=== PATIENT | male | born 1975 | race Caucasian/White ===

== ENCOUNTER 2017-08-25 11:23 | Emergency (ER) | payer OTHER ==
[~2017-08-25] VITALS: Ht 190.5 cm; Wt 141.2 kg
[~2017-08-25 11:23] MED LIST: ACET-1256 PO; IBUP1CAP9 PO; ONDA4TAB10 SL
[2017-08-25 11:26] VITALS: TEMP 36.5; Ht 190.5 cm; Wt 141.2 kg
[2017-08-25 11:36] VITALS: O2SAT 96
[2017-08-25] MEDS ORDERED: KETOROLAC TROMETHAMINE 30 MG/ML VIAL IV STA (12:19)
--- NOTE | 2017-08-25 12:37 | EMERGENCY ROOM VISIT NOTE ---
History First contact with patient: 11:53 Chief Complaint: FLU LIKE SX Stated Complaint: BLURRED VISION,SEVERE MUSCLE ACHES,DIZZINESS,NUMB History of Present Illness The patient is a 42 year old male who presents to the Emergency Room with complaints of overall not feeling well, and pain radiating from his shoulders into the back of his head and through his neck. The patient states the pain has been ongoing for 2 days. He states it is also been associated with headache , blurry vision, sore throat, cough, and lightheadedness. The patient has not had much of an appetite and has been nauseated when he eats, however he has been able to tolerate fluids. The patient states he feels like there is a hair in his throat, and he has been experiencing fevers of 103. The patient denies any nausea or vomiting, dyspnea, chest pain, wheezing, abdominal pain, urinary symptoms, diarrhea, constipation, sinus pain or pressure, rhinorrhea, congestion. The patient states 2 days ago, he woke up "feeling like trash." He states the last time he felt like this, he was admitted to the hospital and had to have an LP performed due to his neck stiffness and symptoms. He states that is something showed up on the spinal tap and I needed to be treated in the hospital". The patient has taken no medications for his symptoms. He states he did have a fever of 103 last night, did not take any medication. He states this does not feel like his musculoskeletal pain that he has experienced in the past with back injuries. The patient does have a history of diabetes, but does not have a PCP. He states that he has been managing his diabetes with diet over the past year. He states he has lost approximately 100 pounds over the past year. Review of Systems A complete 10 point review of systems was reviewed with the patient with pertinent positives and negatives as per history of present illness. All else were negative. Past Medical/Surgical History Medical Problems: (1) Asthma (2) Bronchitis (3) Fever (4) Hypertension (5) Intractable headache (6) Pneumonia (7) Stomach problems Surgical Problems: (1) History of laminectomy (2) History of tonsillectomy Family History Cancer Diabetes mellitus Heart disease Hypertension Lung disease Social History Smoking Status: Never Smoker Alcohol Use: none Drug Use: none Marital Status: single Housing Status: lives alone Occupation Status: employed Current/Historical Medications No Active Prescriptions or Reported Meds Physical Exam Vital Signs Date Time Temp Pulse Resp B/P (MAP) Pulse Ox O2 Delivery O2 Flow Rate FiO2 08/25/17 13:48 82 16 139/90 97 Room Air 08/25/17 12:30 83 16 134/83 96 Room Air 08/25/17 12:07 85 08/25/17 11:37 88 16 136/93 96 Room Air 08/25/17 11:36 96 Room Air 08/25/17 11:26 36.5 92 18 126/76 97 Room Air Physical Exam VITALS: Vitals are noted on the nurse's note and reviewed by myself. Vital signs stable. GENERAL: This is a 42-year-old obese white male, in no acute distress, nondiaphoretic, well-developed well-nourished. SKIN: The skin was without rashes, erythema, edema, or bruising. There is no tenting of the skin. Capillary reflex less than 2 seconds. HEAD: Normocephalic atraumatic. EARS: External auditory canals clear, tympanic membranes pearly varghese without erythema or effusion bilaterally. EYES: Pupils equal round and reactive to light and accommodation. Conjunctivae without injection, sclerae without icterus. Extraocular movements intact. NOSE: Patent, turbinates without inflammation or discharge. No sinus tenderness. MOUTH: Mucous membranes moist. Tonsils are not enlarged. Pharynx without erythema or exudate. Uvula midline. Airway patent. Tongue does not deviate. NECK: Supple without nuchal rigidity. Diffuse, tender lymphadenopathy. No thyromegaly. Cervical spine is nontender, but the patient does have tenderness on the lateral aspects of the neck. No JVD. HEART: Regular rate and rhythm without murmurs gallops or rubs. LUNGS: Clear to auscultation bilaterally without wheezes, rales or rhonchi. No dullness to percussion. No retractions or accessory muscle use. ABDOMEN: Positive bowel sounds x 4. Normal tympanic percussion. Mild tenderness in the lower abdomen on both sides. Otherwise, the abdomen was soft , nontender, without masses or organomegaly. Mcgee sign negative. No guarding or rebound tenderness. MUSCULOSKELETAL: No muscle atrophy, erythema, or edema noted. Full range of motion without joint tenderness in all extremities. No tenderness to palpation. Normal gait. Strength 5/5 throughout. NEURO: Patient was alert and oriented to person place and time. Normal sensation to light and sharp touch. Deep tendon reflexes 2+ throughout. No focal neurological deficits. Medical Decision & Procedures ER Provider Diagnostic Interpretation: CBC was without leukocytosis, anemia, thrombocytopenia. ESR elevated at 19. CMP significant only for elevated blood glucose of 136. Lactic acid normal at 1.2. C-reactive protein elevated at 2.3. Lyme disease testing negative. Rapid strep test was negative. Influenza testing negative. CHEST 2 VIEWS ROUTINE HISTORY: cough COMPARISON: Chest 06/19/2016. FINDINGS: The lungs are clear. Cardiac silhouette is normal in size. No pleural effusions. No pneumothorax. IMPRESSION: No acute process. Electronically signed by: Kurt Wray M.D. 08/25/2017 1:41 PM Dictated Date/Time: 08/25/2017 1:37 PM Laboratory Results 08/25/17 12:39 Red Blood Count 5.13, Mean Corpuscular Volume 84.2, Mean Corpuscular Hemoglobin 28.7, Mean Corpuscular Hemoglobin Concent 34.0, Mean Platelet Volume 9.0, Neutrophils (%) (Auto) 51.7, Lymphocytes (%) (Auto) 32.3, Monocytes (%) (Auto) 13.7, Eosinophils (%) (Auto) 1.5, Basophils (%) (Auto) 0.7, Neutrophils # (Auto ) 3.53, Lymphocytes # (Auto) 2.21, Monocytes # (Auto) 0.94, Eosinophils # (Auto ) 0.10, Basophils # (Auto) 0.05 08/25/17 12:39 Test 08/25/17 12:30 08/25/17 12:34 08/25/17 12:39 Influenza Type A Antigen Neg for Influ A (NEG) Influenza Type B Antigen Neg for Influ B (NEG) Lactic Acid Level 1.2 mmol/L (0.4-2.0) White Blood Count 6.84 K/uL (4.8-10.8) Red Blood Count 5.13 M/uL (4.7-6.1) Hemoglobin 14.7 g/dL (14.0-18.0) Hematocrit 43.2 % (42-52) Mean Corpuscular Volume 84.2 fL (80-100) Mean Corpuscular Hemoglobin 28.7 pg (25-34) Mean Corpuscular Hemoglobin Concent 34.0 g/dl (32-36) Platelet Count 224 K/uL (130-400) Mean Platelet Volume 9.0 fL (7.4-10.4) Neutrophils (%) (Auto) 51.7 % Lymphocytes (%) (Auto) 32.3 % Monocytes (%) (Auto) 13.7 % Eosinophils (%) (Auto) 1.5 % Basophils (%) (Auto) 0.7 % Neutrophils # (Auto) 3.53 K/uL (1.4-6.5) Lymphocytes # (Auto) 2.21 K/uL (1.2-3.4) Monocytes # (Auto) 0.94 K/uL (0.11-0.59) Eosinophils # (Auto) 0.10 K/uL (0-0.5) Basophils # (Auto) 0.05 K/uL (0-0.2) RDW Standard Deviation 39.4 fL (36.4-46.3) RDW Coefficient of Variation 12.9 % (11.5-14.5) Immature Granulocyte % (Auto) 0.1 % Immature Granulocyte # (Auto) 0.01 K/uL (0.00-0.02) Erythrocyte Sedimentation Rate 19 mm/hr (0-14) Anion Gap 3.0 mmol/L (3-11) Est Creatinine Clear Calc Drug Dose 175.8 ml/min Estimated GFR () 125.8 Estimated GFR (Non- 108.5 BUN/Creatinine Ratio 7.8 (10-20) Calcium Level 9.0 mg/dl (8.5-10.1) Total Bilirubin 0.3 mg/dl (0.2-1) Aspartate Amino Transf (AST/SGOT) 16 U/L (15-37) Alanine Aminotransferase (ALT/SGPT) 44 U/L (12-78) Alkaline Phosphatase 82 U/L (45-117) C-Reactive Protein 2.30 mg/dl (0-0.29) Total Protein 7.3 gm/dl (6.4-8.2) Albumin 3.7 gm/dl (3.4-5.0) Globulin 3.6 gm/dl (2.5-4.0) Albumin/Globulin Ratio 1.0 (0.9-2) Lyme Disease IgG Antibody NEG (NEG) Lyme Disease IgM Antibody NEG (NEG) Medications Administered Medications (Trade) Dose Ordered Sig/[place] Route Start Time Stop Time Status Last Admin Dose Admin Ketorolac Tromethamine (Toradol Inj) 30 mg NOW STAT IV 08/25/17 12:19 08/25/17 12:22 DC 08/25/17 12:44 30 MG ED Course The patient was seen and evaluated as above. His previous records were reviewed , and I did not note any significant findings on any of his labs, lumbar puncture, or imaging studies performed in 2016 with his admission. The patient' s admission diagnosis was viral illness, and he was admitted for supportive, symptomatic treatment. IV lock was established and labs were drawn. Chest x-ray was performed. Workup was reviewed, without significant concerns. The patient had been given 30 mg Toradol IV, and did note improvement in his neck stiffness and pain. I discussed all results with the patient at bedside. I do feel that discharge is reasonable based on the patient's workup and improvement in his symptoms with anti-inflammatory medication. The patient is in agreement with the assessment and plan, discharge instructions were reviewed, the patient was discharged home in good condition. Medical Decision This is a 42-year-old male patient who presents to the emergency department today primarily complaining of severe muscle aches, neck stiffness, dizziness and sore throat with a cough. The patient states his symptoms are reminiscent of similar symptoms he experienced approximately one year ago when he required admission to the hospital. Upon review of the patient's previous records, I noted that he had a significant workup including imaging of his head, chest, and did have a lumbar puncture which was insignificant for obvious bacterial infection. The patient was diagnosed with a viral-like illness, was admitted for supportive care. Due to the patient's complaint of severe neck stiffness, a workup was initiated to evaluate for possible meningitis or other infectious process. The patient's workup here in the emergency department today was overall unimpressive, and his symptoms did respond to anti-inflammatory medications. He was afebrile, vitals were stable, and did not appear in acute distress while here in the ED. I suspect the patient is expecting another viral type illness, and did discuss with him supportive measures for home care. The patient is in agreement with the assessment and plan. He was given instructions to return to the emergency department for symptoms which are worsening and not responsive to OTC medications. I did speak with Dr. Malloy regarding the patient condition, and he was in agreement with the assessment and plan. Differential diagnosis includes upper respiratory infection, acute pharyngitis, strep pharyngitis, influenza, viral type illness, meningitis, encephalitis, migraine, headache, stroke, malignancy, and others Medication Reconcilliation Current Medication List: was personally reviewed by me Blood Pressure Screening Patient's blood pressure: Normal blood pressure Impression Primary Impression: Influenza-like illness Additional Impressions: Pharyngitis Lymphadenitis Departure Information Dispostion Home / Self-Care Condition GOOD Prescriptions No Active Prescriptions or Reported Meds Referrals No Doctor, Assigned (PCP) Patient Instructions ED Pharyngitis Viral, ED Viral Syndrome, My [facility] Additional Instructions You were seen and evaluated in the emergency department today for an upper respiratory infection. I do feel that based on your symptoms, and the duration of illness, this is likely viral in nature. As discussed, antibiotics will not treat viral illness. As discussed, symptoms can last/linger for 2-3 weeks or longer in some cases. You may take Zofran as needed for nausea/vomiting. For your sore throat, you may use a 1:1 mixture of liquid Benadryl and liquid Maalox. Gargle and spit this mixture. It will help to soothe the throat and provide some relief. Drink warm tea with honey and lemon, as this will also help to soothe the throat. Gargle with salt water frequently. As discussed, you should take OTC Mucinex and/or Sudafed for your symptoms. Please do not exceed the recommended daily dosages. Ibuprofen(Motrin, Advil) may be used for fever or pain. Use 600mg every six hours as needed. Take with food. Avoid using more than 2400mg in a 24 hour period. Do not use 2400mg per day for more than three consecutive days without physician direction. Prolonged inappropriate use can lead to stomach upset or ulcers. You may take Naproxen 1-2 tablets twice daily in place of ibuprofen. This medication will help with the swelling in your sinuses. (AND/OR) Acetaminophen(Tylenol) may be used for fever or pain. Use 1000mg every six hours as needed. Avoid using more than 3000mg in a 24 hour period. For congestion, you may use Flonase OTC. You may want to consider zinc, echinacea, and vitamin C to help boost your immunity. Please get plenty of rest and drink plenty of fluids. Please return or follow-up with your PCP in 1 week if you are not experiencing any improvement in your symptoms. Return to the emergency department for coughing up blood, difficulty breathing, chest pain, worsening symptoms, or for other concerns. Problem Qualifiers Additional Impressions: Pharyngitis Pharyngitis/tonsillitis etiology: unspecified etiology Qualified Codes: J02.9 - Acute pharyngitis, unspecified
[2017-08-25 12:55] LABS: BASO % 0.7 %; BASO ABS # 0.05 K/uL (0-0.2); EOS % 1.5 %; HEMATOCRIT 43.2 % (42-52); HEMOGLOBIN 14.7 g/dL (14.0-18.0); IG# 0.01 K/uL (0.00-0.02); LYMPH % 32.3 %; LYMPH ABS # 2.21 K/uL (1.2-3.4); MEAN CELL VOLUME 84.2 fL (80-100); MEAN CORPUSCULAR HEMOGLOBIN 28.7 pg (25-34); MONO % 13.7 %; MONO ABS # 0.94 K/uL (0.11-0.59); NEUT % 51.7 %; NEUT ABS # 3.53 K/uL (1.4-6.5); PLATELET COUNT 224 K/uL (130-400); RED CELL DISTRIBUTION WIDTH CV 12.9 % (11.5-14.5); RED CELL DISTRIBUTION WIDTH SD 39.4 fL (36.4-46.3); WHITE BLOOD COUNT 6.84 K/uL (4.8-10.8)
[2017-08-25 13:09] LABS: ALBUMIN 3.7 gm/dl (3.4-5.0); CREATININE 0.83 mg/dl (0.60-1.40); POTASSIUM 3.9 mmol/L (3.5-5.1)
[2017-08-25 13:11] LABS: TOTAL PROTEIN 7.3 gm/dl (6.4-8.2)
[2017-08-25 13:24] LABS: INFLUENZA B ANTIGEN Neg for Influ B (NEG)
--- NOTE | 2017-08-25 13:42 | DIAGNOSTIC IMAGING REPORT ---
CHEST 2 VIEWS ROUTINE HISTORY: cough COMPARISON: Chest 06/19/2016. FINDINGS: The lungs are clear. Cardiac silhouette is normal in size. No pleural effusions. No pneumothorax. IMPRESSION: No acute process. Electronically signed by: Kurt Wray M.D. 08/25/2017 1:41 PM Dictated Date/Time: 08/25/2017 1:37 PM
[2017-08-25 14:30] VITALS: BP 142/84; PULSE 79; O2SAT 97
== END 2017-08-25 14:31 | disposition home or self-care (01) ==
LOC: C.EDB 11:25 → C.EDC 14:31
DX: J02.9 Acute pharyngitis, unspecified (principal); I88.9 Nonspecific lymphadenitis, unspecified; M79.1 Myalgia; R42 Dizziness and giddiness; R05 Cough; H53.8 Other visual disturbances; R50.9 Fever, unspecified; E11.9 Type 2 diabetes mellitus without complications; I10 Essential (primary) hypertension; Z80.9 Family history of malignant neoplasm, unspecified; Z83.3 Family history of diabetes mellitus; Z82.49 Family history of ischemic heart disease and other diseases of the circulatory system

== ENCOUNTER 2017-10-29 21:56 | Emergency (ER) | payer OTHER ==
[~2017-10-29] VITALS: Ht 190.5 cm; Wt 145.3 kg
[2017-10-29 21:58] VITALS: TEMP 36.6; Ht 190.5 cm; Wt 145.3 kg
[2017-10-29] MEDS ORDERED: KETOROLAC TROMETHAMINE 30 MG/ML VIAL IV STA (22:19)
[2017-10-29] MEDS ORDERED: SODIUM CHLORIDE 0.9% 1000ML 1,000 ML IV STA (22:19)
--- NOTE | 2017-10-29 22:22 | EMERGENCY ROOM VISIT NOTE ---
History Report prepared by Brooke: Akash Perez Under the Supervision of: Dr. Jose Reis M.D. First contact with patient: 22:07 Chief Complaint: GROIN PAIN Stated Complaint: SEVERE GROIN PAIN History of Present Illness The patient is a 42 year old male who presents to the Emergency Room with complaints of slow onset of intermittent left testicular pressure that began 36 hours ago. He states that he feels like his left testicle is being squeezed and rates his pain as 5/10, with episodes lasting between 10 seconds to several minutes. The numbness in his lower legs is unchanged from baseline. He states that he has a history of back surgeries and does not do any heavy lifting other than bags of soil. He states he has had minimal improvement of his pain with cannabis which he normally takes for his back pain. He denies taking narcotics as he is a recovering addict. He denies any prior episodes of testicular pain. He denies any radiation of this pain into his abdomen. He denies urinary symptoms, chest pain, and SOB. He denies a history of hernias or kidney stones. Of note, the patient does not have a regular PCP that he follows up with. Source of History: patient Onset: 36 hours ago Position: other (left testicle) Symptom Intensity: rated as 5/10 Quality: pressure Timing: intermittent Modifying Factors (Relieving): other (minimal improvement with cannabis) Associated Symptoms: + numbness (unchanged from baseline), No chest pain, No SOB, No urinary symptoms Note: Patient denies radiation of pain into abdomen. Review of Systems See HPI for pertinent positives & negatives. A total of 10 systems reviewed and were otherwise negative. Past Medical & Surgical Medical Problems: (1) Asthma (2) Bronchitis (3) Diet-controlled diabetes mellitus (4) Fever (5) Hypertension (6) Intractable headache (7) Pneumonia (8) Stomach problems Surgical Problems: (1) History of laminectomy (2) History of tonsillectomy (3) S/P cholecystectomy Old medical records were reviewed. Nurse's notes were reviewed and I agree with. Family History Cancer Diabetes mellitus Heart disease Hypertension Lung disease Social History Smoking Status: Former Smoker Alcohol Use: none Drug Use: none Marital Status: single Housing Status: lives alone Occupation Status: employed Current/Historical Medications Scheduled Ciprofloxacin Hcl (Cipro), 500 MG PO BID Allergies Coded Allergies: Cat Dander (Unverified Allergy, Severe, RASH, 08/25/17) Insulin (Verified Allergy, Unknown, HIVES, 08/25/17) has to take benadryl with his insulin Physical Exam Vital Signs Date Time Temp Pulse Resp B/P (MAP) Pulse Ox O2 Delivery O2 Flow Rate FiO2 10/30/17 00:48 62 20 123/80 95 10/29/17 23:43 70 20 99/58 95 Room Air 10/29/17 21:58 36.6 82 20 156/81 97 Room Air Physical Exam General: Non-ill appearing middle aged male in no acute distress. HEENT: Normal cephalic atraumatic. Pupils are equal round and reactive to light. Extraocular movements are intact. Oropharynx is pink with moist mucous membranes. No swelling of the mouth lips or tongue. Neck: Supple with a midline trachea. No meningeal signs or stiffness, no JVD or bruits. No Stridor. Chest: Clear to auscultation bilaterally. No wheezes or rhonchi. No increased work of breathing. Heart: regular rate and rhythm. Abdomen: Soft nontender, nondistended without rebound guarding or rigidity. Extremities: No cyanosis clubbing or edema. No calf tenderness or assymetry Spine/Back. Non tender to palpation. No CVA tenderness Skin: Good turgor without rashes. Neurologic exam: Cranial nerves two through 12 are intact. Motor and sensation are intact and symmetrical throughout. : left testicle is mildly tender compared to right particularly along the epididymis. The testicle has normal lie and is not swollen. The cord is palpable and not tender. The testicle has no redness, warmth, swelling, or masses. Medical Decision & Procedures ER Provider Diagnostic Interpretation: Radiology results as stated below per my review and radiologist interpretation: US SCROTAL: Bilateral testicular flow visualized, with left slightly less prominent compared to right. Please note that intermittent torsion cannot be completely excluded sonographically. Minimal left greater than right hydroceles. Left varicocele. Linear echogenic foci in the soft tissues lateral to the left testicle, query postsurgical change or other etiology. Radiologist: Graciela Shen M.D. Study ready at 23:46 and initial results transmitted at 23:54. Laboratory Results 10/29/17 22:25 Red Blood Count 5.16, Mean Corpuscular Volume 83.7, Mean Corpuscular Hemoglobin 28.3, Mean Corpuscular Hemoglobin Concent 33.8, Mean Platelet Volume 9.0, Neutrophils (%) (Auto) 55.2, Lymphocytes (%) (Auto) 34.6, Monocytes (%) (Auto) 7.7, Eosinophils (%) (Auto) 1.6, Basophils (%) (Auto) 0.8, Neutrophils # (Auto) 4.94, Lymphocytes # (Auto) 3.10, Monocytes # (Auto) 0.69, Eosinophils # (Auto) 0.14, Basophils # (Auto) 0.07 10/29/17 22:25 Test 10/29/17 22:25 10/30/17 00:09 White Blood Count 8.95 K/uL (4.8-10.8) Red Blood Count 5.16 M/uL (4.7-6.1) Hemoglobin 14.6 g/dL (14.0-18.0) Hematocrit 43.2 % (42-52) Mean Corpuscular Volume 83.7 fL (80-100) Mean Corpuscular Hemoglobin 28.3 pg (25-34) Mean Corpuscular Hemoglobin Concent 33.8 g/dl (32-36) Platelet Count 236 K/uL (130-400) Mean Platelet Volume 9.0 fL (7.4-10.4) Neutrophils (%) (Auto) 55.2 % Lymphocytes (%) (Auto) 34.6 % Monocytes (%) (Auto) 7.7 % Eosinophils (%) (Auto) 1.6 % Basophils (%) (Auto) 0.8 % Neutrophils # (Auto) 4.94 K/uL (1.4-6.5) Lymphocytes # (Auto) 3.10 K/uL (1.2-3.4) Monocytes # (Auto) 0.69 K/uL (0.11-0.59) Eosinophils # (Auto) 0.14 K/uL (0-0.5) Basophils # (Auto) 0.07 K/uL (0-0.2) RDW Standard Deviation 39.4 fL (36.4-46.3) RDW Coefficient of Variation 13.1 % (11.5-14.5) Immature Granulocyte % (Auto) 0.1 % Immature Granulocyte # (Auto) 0.01 K/uL (0.00-0.02) Anion Gap 6.0 mmol/L (3-11) Est Creatinine Clear Calc Drug Dose 157.6 ml/min Estimated GFR () 115.4 Estimated GFR (Non- 99.6 BUN/Creatinine Ratio 9.6 (10-20) Calcium Level 8.7 mg/dl (8.5-10.1) Urine Color DK YELLOW Urine Appearance CLEAR (CLEAR) Urine pH 5.0 (4.5-7.5) Urine Specific [place] 1.025 (1.000-1.030) Urine Protein NEG (NEG) Urine Glucose (UA) NEG (NEG) Urine Ketones NEG (NEG) Urine Occult Blood NEG (NEG) Urine Nitrite NEG (NEG) Urine Bilirubin NEG (NEG) Urine Urobilinogen NEG (NEG) Urine Leukocyte Esterase TRACE (NEG) Urine WBC (Auto) 5-10 /hpf (0-5) Urine RBC (Auto) 0-4 /hpf (0-4) Urine Hyaline Casts (Auto) 10-30 /lpf (0-5) Urine Epithelial Cells (Auto) 10-20 /lpf (0-5) Urine Bacteria (Auto) NEG (NEG) Laboratory studies as stated above per my review. Medications Administered Medications (Trade) Dose Ordered Sig/[place] Route Start Time Stop Time Status Last Admin Dose Admin Sodium Chloride 1,000 ml @ 999 mls/hr Q1H1M STAT IV 10/29/17 22:19 10/29/17 23:19 DC 10/29/17 22:34 999 MLS/HR Ketorolac Tromethamine (Toradol Inj) 30 mg NOW STAT IV 10/29/17 22:19 10/29/17 22:22 DC 10/29/17 22:34 30 MG Ciprofloxacin (Cipro 500MG Home Pack) 1 homepack UD ONCE PO 10/30/17 00:45 10/30/17 00:46 DC 10/30/17 00:47 1 HOMEPACK ED Course 2207: Past medical records reviewed. The patient was evaluated in room C5, and a complete history and physical examination were performed. 2219: Toradol Inj, 30 mg, IV; Sodium Chloride 1000 ml @ 999 mls/hr IV. 2342: I checked on the patient and he is comfortable. We are awaiting results of the US. 0003: I checked on the patient and he is waiting to urinate. 0028: I checked on the patient and he is resting comfortably. 0032: I discussed the patient's case. Dr. Rosales thinks that testicular torsion is unlikely and to place the patient on antibiotics. The patient will be evaluated for further management. 0045: Cipro 500 mg Home Pack, 1 homepack, PO. 0100: Upon reevaluation, the patient is doing well. I discussed the results and treatment plan with the patient. He verbalized agreement of the treatment plan. The patient was discharged home. Medical Decision Differential diagnoses include epididymitis, testicular torsion, hernia, electrolyte and metabolic abnormality, and musculoskeletal injury. This patient comes in as described above. he has had intermittent left testicular pain. He has had no trauma. No fever chills. No dysuria or hematuria. No redness or warmth. IV access established . he was given IV Toradol he appears comfortable. On exam he has no redness or warmth or signs swelling or anything to suggest hernia or testicular torsion. The cord is nontender. He is tender to palpation along the left testicles posteriorly. He has no white count or fever to suggest infection. He has normal kidney function. Ultrasound does not show any definite testicular torsion or masses. There is likely postsurgical change in the lateral to the left testicle. There is flow to both testicles questionable decreased on the left compared to the right. Clinically he does not examine like a testicular torsion. I discussed with Dr. Rosales who agreed and recommended put him on antibiotics. I suspect he may have an epididymitis. He was given Cipro 500 mg here as well as a home pack. He should use scrotal support. He should return if: increasing pain or swelling, worsening of symptoms, fever or chills, any new problems or concerns. he should return over the weekend if symptoms worsen follow-up with his regular doctor or Dr. Roslaes's group on Wednesday for recheck. He can use ibuprofen 400 mg every 6 hours for pain. Medication Reconcilliation Current Medication List: was personally reviewed by me Blood Pressure Screening Patient's blood pressure: Elevated blood pressure Blood pressure disposition: Elevated BP felt to be situational Consults Time Called: 29 Consulting Physician: Dr. Rosales - Urology Returned Call: 31 Discussed the patient's case. Dr. Rosales thinks that testicular torsion is unlikely and to place the patient on antibiotics. The patient will be evaluated for further management. Impression Primary Impression: Left testicular pain Scribe Attestation The scribe's documentation has been prepared under my direction and personally reviewed by me in its entirety. I confirm that the note above accurately reflects all work, treatment, procedures, and medical decision making performed by me. Departure Information Dispostion Home / Self-Care Prescriptions Ciprofloxacin Hcl (CIPRO) 500 Mg Tab 500 MG PO BID, #20 TAB Prov: Jose Reis M.D. 10/30/17 Referrals No Doctor, Assigned (PCP) Patient Instructions My [facility] Additional Instructions Rest Drink plenty of fluids Use scrotal support Use ibuprofen 400 mg every 6 hours, take with food Use Cipro 500 mg twice a day for 10 days totalantibiotic Return if: increasing pain or swelling, fever chills, worsening symptoms, any new problems or concerns Follow-up with your doctor or urology Dr. Rosales on Wednesday for recheck. Return to the ER over the weekend if symptoms worsen
[2017-10-29 22:48] LABS: BASO % 0.8 %; BASO ABS # 0.07 K/uL (0-0.2); EOS % 1.6 %; EOS ABS # 0.14 K/uL (0-0.5); HEMATOCRIT 43.2 % (42-52); HEMOGLOBIN 14.6 g/dL (14.0-18.0); IG# 0.01 K/uL (0.00-0.02); LYMPH % 34.6 %; MEAN CELL VOLUME 83.7 fL (80-100); MEAN CORPUSCULAR HEMOGLOBIN 28.3 pg (25-34); MEAN CORPUSCULAR HGB CONC 33.8 g/dl (32-36); MONO % 7.7 %; MONO ABS # 0.69 K/uL (0.11-0.59); NEUT % 55.2 %; NEUT ABS # 4.94 K/uL (1.4-6.5); PLATELET COUNT 236 K/uL (130-400); RED CELL DISTRIBUTION WIDTH CV 13.1 % (11.5-14.5); RED CELL DISTRIBUTION WIDTH SD 39.4 fL (36.4-46.3); WHITE BLOOD COUNT 8.95 K/uL (4.8-10.8)
[2017-10-29 23:05] LABS: CALCIUM 8.7 mg/dl (8.5-10.1); CREATININE 0.94 mg/dl (0.60-1.40); POTASSIUM 3.7 mmol/L (3.5-5.1)
[2017-10-30] MEDS ORDERED: CIPR-255 PO (00:41)
[2017-10-30] MEDS ORDERED: CIPROFLOXACIN 500MG HOME PACK PO ONE (00:45)
[2017-10-30 00:48] VITALS: BP 123/80; PULSE 62; O2SAT 95
--- NOTE | 2017-10-30 05:36 | DIAGNOSTIC IMAGING REPORT ---
(TESTICULAR) SCROTUM-CONT HISTORY: Pain eval for left test torsion, epydid, hernia COMPARISON: None. FINDINGS: Right testis: Maximum dimension 4.3 cm. Normal vascular flow Left testis: Maximum dimension 4.2 cm. Normal vascular flow. Very small left-sided varicocele. IMPRESSION: Normal testicular ultrasound. Minimal localized scarring at the point of clinically palpable nodularity which potentially relates to the patient's prior surgical procedure. The above report was generated using voice recognition software. It may contain grammatical, syntax or spelling errors. Electronically signed by: Nixon Beavers M.D. 10/30/2017 5:35 AM Dictated Date/Time: 10/30/2017 5:33 AM
== END 2017-10-30 00:56 | disposition home or self-care (01) ==
LOC: C.EDB 21:57 → C.EDC 10-30 00:56
DX: N50.812 Left testicular pain (principal); F12.10 Cannabis abuse, uncomplicated; J45.909 Unspecified asthma, uncomplicated; E11.9 Type 2 diabetes mellitus without complications; I10 Essential (primary) hypertension; Z90.49 Acquired absence of other specified parts of digestive tract; Z87.891 Personal history of nicotine dependence; Z83.3 Family history of diabetes mellitus; Z82.49 Family history of ischemic heart disease and other diseases of the circulatory system; Z88.8 Allergy status to other drugs, medicaments and biological substances; Z91.048 Other nonmedicinal substance allergy status